=== PATIENT | female | born 1960 | race Caucasian/White ===

== ENCOUNTER 2016-07-26 12:12 | Emergency (ER) | payer SELFPAY ==
[~2016-07-26 12:12] MED LIST: ADVAIR; ALBUTEROL SULF8.5 GM; ALBUTEROL SULF8.5 GM IH; ALBUTEROL0.83 MG/ML INH; ALBUTEROL2.5 MG/0.1 IH; ALEVE220 MG PO; EPIPEN0.3 MG/0.1 IM; EPIPEN0.3 MG/0.3 IM; FLEXERIL10 MG PO; GLUCOPHAGE1000 MG PO; KENALOG80 GM TOP; NORCO 5/325 TAB1 TAB PO; PERCOCET 5/3251 TAB PO; PREDNISONE10 M1 PO; PREDNISONE20 MG PO; PROAIR HFA8.5 GM IH; PULMICORT0.5 MG/2 M IH; SYMBICORT 80-46.9 GM IH; VICODIN 5/500 T1 TAB PO
[2016-07-26] MEDS ORDERED: NO HOME MEDICATION XX (12:46)
[2016-07-26] MEDS ORDERED: BACTRIM DS TAB1 EAC2 PO (13:54)
== END 2016-07-26 14:30 ==
LOC: EDMED 12:12
DX: L02.211 Cutaneous abscess of abdominal wall (principal); E11.9 Type 2 diabetes mellitus without complications; J45.909 Unspecified asthma, uncomplicated; F17.210 Nicotine dependence, cigarettes, uncomplicated; J44.9 Chronic obstructive pulmonary disease, unspecified; Z88.8 Allergy status to other drugs, medicaments and biological substances